=== PATIENT | female | born 1985 | race African-American/Black ===

== ENCOUNTER 2018-08-08 23:49 | Emergency (ER) | payer MEDICAID ==
[~2018-08-08] VITALS: Ht 165.1 cm; Wt 122.5 kg
[2018-08-09] VITALS (8 sets, daily range): BP systolic 126–140; BP diastolic 70–81
--- NOTE | 2018-08-09 00:08 | NUR ---
ED Nurse Note: PT WAS PICKEDUP ON [facility]AH BY ANDREW DUE TO BHAVIORAL COMPLAINT, PT WAS COMBATIVE AT SCENE PT IS IN CUSTODY
[2018-08-09] MEDS ORDERED: Haloperidol 5mg/ml Inj IM ONE (00:30)
[2018-08-09] MEDS ORDERED: DiphenhydrAMINE 50mg/ml Inj IM ONE (00:30)
[2018-08-09] MEDS ORDERED: LORazepam Inj 2mg/ml 1ml IM ONE (00:30)
[2018-08-09 03:53] LABS: EOSINOPHILS % (AUTO) 1.8 % (0.0-3.0); HEMOGLOBIN 12.5 G/DL (12.0-16.0); LYMPHOCYTES % (AUTO) 53.4 % (20.0-45.0); MEAN CORPUSCULAR VOLUME 87 FL (80-99); MONOCYTES % (AUTO) 8.5 % (1.0-10.0); NEUTROPHILS % (AUTO) 34.3 % (45.0-75.0); PLATELET COUNT 177 K/UL (150-450); RED BLOOD COUNT 4.48 M/UL (4.20-5.40); RED CELL DISTRIBUTION WIDTH 13.9 % (11.6-14.8); WHITE BLOOD COUNT 5.4 K/UL (4.8-10.8)
[2018-08-09 04:14] LABS: ANION GAP 6 mmol/L (5-15); BLOOD UREA NITROGEN 15 mg/dL (7-18); CALCIUM 8.6 MG/DL (8.5-10.1); CARBON DIOXIDE 28 MMOL/L (21-32); CHLORIDE 102 MMOL/L (98-107); CREATININE 0.6 MG/DL (0.55-1.30); POTASSIUM 5.7 MMOL/L (3.5-5.1); SODIUM 136 MMOL/L (136-145)
[2018-08-09 04:20] LABS: ALANINE AMINOTRANSFERASE 33 U/L (12-78); ALBUMIN 3.2 G/DL (3.4-5.0); ALBUMIN/GLOBULIN RATIO 0.8 (1.0-2.7); ALKALINE PHOSPHATASE 88 U/L (46-116); ASPARTATE AMINO TRANSFERASE 47 U/L (15-37); BILIRUBIN,TOTAL 0.5 MG/DL (0.2-1.0)
[2018-08-09] MEDS ORDERED: Sodium Polystyrene Sulfonate 15gm Powder ORAL ONE (05:30)
[2018-08-09 05:35] LABS: APPEARANCE,URINE CLEAR; BILIRUBIN, URINE NEGATIVE (NEGATIVE); GLUCOSE, URINE (UA) NEGATIVE (NEGATIVE); KETONES,URINE 2+ (NEGATIVE); LEUKOCYTE ESTERASE ,URINE 1+ (NEGATIVE); NITRITE,URINE NEGATIVE (NEGATIVE); PH,URINE 5 (4.5-8.0); PROTEIN,URINE 1+ (NEGATIVE); UROBILINOGEN,URINE 1 MG/DL (0.0-1.0)
[2018-08-09 05:42] LABS: COLOR,URINE YELLOW
--- NOTE | 2018-08-09 05:43 | NUR ---
ED Nurse Note: xi hicks moved to [facility]
--- NOTE | 2018-08-09 06:47 | Emergency Room Report ---
History of Present Illness General Chief Complaint: Behavioral Complaint Source: Patient, EMS Present Illness HPI Unidentified female presents ED for evaluation. Brought in by EMS and [employer] for behavioral complaint. Found wandering naked. Unable to provide any history at this time. Unclear whether patient has psychiatric history. No reported SI or HI. No hearing voices. Unclear drug use. No other aggravating relieving factors. No other associated symptoms Allergies: Coded Allergies: UNABLE TO ASSESS (Unverified , 08/08/18) Patient History Past Medical History: none Past Surgical History: none Pertinent Family History: none Social History: Reports: drug use; Denies: smoking, alcohol use Last Menstrual Period: UNK Now: No Immunizations: UTD Reviewed Nursing Documentation: PMH: Agreed; PSxH: Agreed Nursing Documentation-PMH Past Medical History: No History, Except For Review of Systems All Other Systems: limited Physical Exam Vital Signs Date Time Temp Pulse Resp B/P (MAP) Pulse Ox O2 Delivery O2 Flow Rate FiO2 08/08/18 23:48 100 24 135/76 100 Room Air 08/09/18 00:04 99 08/09/18 00:04 98.0 Sp02 EP Interpretation: reviewed, normal General Appearance: other - agitated Head: normocephalic Eyes: bilateral eye normal inspection, bilateral eye PERRL ENT: normal ENT inspection Neck: normal inspection Respiratory: chest non-tender, lungs clear, normal breath sounds, speaking full sentences Cardiovascular #1: regular rate, rhythm, no edema Gastrointestinal: normal bowel sounds, non tender, soft, non-distended, no guarding, no rebound Rectal: deferred Genitourinary: no CVA tenderness Musculoskeletal: normal inspection Neurologic: other - agitated/combative Psychiatric: other - agitated/combative Skin: normal inspection Lymphatic: normal inspection Medical Decision Making Restraint Attestation I, Vishnu Sheets MD, have personally evaluated this patient. Laboratory tests have been reviewed and addressed accordingly. The patient is deemed to present a danger to themselves and/or others. This is based on the exam, history (provided by patient, EMS/[employer] and/or family) and observed or reported behavior. Attempts for non-invasive measures have been considered and/or attempted, however, have been futile. It is in the best interest of the nursing staff, the patient, and others involved in this patient's care that behavioral restraints be applied. Patient evaluation reveals the following: Diagnostic Impression: Primary Impression: Substance abuse ER Course Hospital Course 33 yo F presents to ED for behavioral disorder. found wandering naked on street. Differential diagnoses include: Major depressive disorder, unspecified psychosis , EtOH abuse, drug abuse Clinical course Patient placed on stretcher. On one to one observation. After initial history and physical I ordered labs, sedation medications Labs- K 5.7, aspirin/Tylenol levels normal, EtOH level normal, U. tox + amphetamines, +THC Kayexalate given. patient later provided her name as she is now more awake and alert and oriented. Still no history of SI or HI patient is on 5150 hold. Patient is medically cleared and pending psychiatric evaluation. i. I feel this is a highly complex case requiring extensive working including EKG/Rhythm strip, Xray/CT/US, Blood/urine lab work, repeat exams while in ED, and administration of strong opiates/narcotics for pain control, admission to hospital or close patient follow up. Labs Test 08/09/18 03:24 08/09/18 05:12 White Blood Count 5.4 K/UL (4.8-10.8) Red Blood Count 4.48 M/UL (4.20-5.40) Hemoglobin 12.5 G/DL (12.0-16.0) Hematocrit 39.0 % (37.0-47.0) Mean Corpuscular Volume 87 FL (80-99) Mean Corpuscular Hemoglobin 27.8 PG (27.0-31.0) Mean Corpuscular Hemoglobin Concent 31.9 G/DL (32.0-36.0) Red Cell Distribution Width 13.9 % (11.6-14.8) Platelet Count 177 K/UL (150-450) Mean Platelet Volume 8.1 FL (6.5-10.1) Neutrophils (%) (Auto) 34.3 % (45.0-75.0) Lymphocytes (%) (Auto) 53.4 % (20.0-45.0) Monocytes (%) (Auto) 8.5 % (1.0-10.0) Eosinophils (%) (Auto) 1.8 % (0.0-3.0) Basophils (%) (Auto) 2.0 % (0.0-2.0) Sodium Level 136 MMOL/L (136-145) Potassium Level 5.7 MMOL/L (3.5-5.1) Chloride Level 102 MMOL/L (98-107) Carbon Dioxide Level 28 MMOL/L (21-32) Anion Gap 6 mmol/L (5-15) Blood Urea Nitrogen 15 mg/dL (7-18) Creatinine 0.6 MG/DL (0.55-1.30) Estimat Glomerular Filtration Rate > 60 mL/min (>60) Glucose Level 88 MG/DL (74-106) Calcium Level 8.6 MG/DL (8.5-10.1) Total Bilirubin 0.5 MG/DL (0.2-1.0) Aspartate Amino Transf (AST/SGOT) 47 U/L (15-37) Alanine Aminotransferase (ALT/SGPT) 33 U/L (12-78) Alkaline Phosphatase 88 U/L (46-116) Total Protein 7.4 G/DL (6.4-8.2) Albumin 3.2 G/DL (3.4-5.0) Globulin 4.2 g/dL Albumin/Globulin Ratio 0.8 (1.0-2.7) Salicylates Level 1.4 ug/mL (2.8-20) Acetaminophen Level < 2 MCG/ML (10-30) Serum Alcohol < 3 mg/dL Urine Color Yellow Urine Appearance Clear Urine pH 5 (4.5-8.0) Urine Specific [place] 1.025 (1.005-1.035) Urine Protein 1+ (NEGATIVE) Urine Glucose (UA) Negative (NEGATIVE) Urine Ketones 2+ (NEGATIVE) Urine Blood Negative (NEGATIVE) Urine Nitrite Negative (NEGATIVE) Urine Bilirubin Negative (NEGATIVE) Urine Urobilinogen 1 MG/DL (0.0-1.0) Urine Leukocyte Esterase 1+ (NEGATIVE) Urine RBC 0-2 /HPF (0 - 2) Urine WBC 2-4 /HPF (0 - 2) Urine Squamous Epithelial Cells Few /LPF (NONE/OCC) Urine Bacteria Few /HPF (NONE) Urine HCG, Qualitative Negative (NEGATIVE) Urine Opiates Screen Negative (NEGATIVE) Urine Barbiturates Screen Negative (NEGATIVE) Phencyclidine (PCP) Screen Negative (NEGATIVE) Urine Amphetamines Screen Positive (NEGATIVE) Urine Benzodiazepines Screen Negative (NEGATIVE) Urine Cocaine Screen Negative (NEGATIVE) Urine Marijuana (THC) Screen Positive (NEGATIVE) Last Vital Signs Date Time Temp Pulse Resp B/P (MAP) Pulse Ox O2 Delivery O2 Flow Rate FiO2 08/09/18 04:01 98.0 85 18 140/72 100 Room Air 08/09/18 00:04 99 Status: improved Disposition: XFER SHT-TRM HOSP Condition: Serious Referrals: NOT CHOSEN IPA/,REFERRING (PCP) Vishnu Sheets MD Aug 09, 2018 06:47
--- NOTE | 2018-08-09 07:55 | NUR ---
ED Nurse Note: Patient tolerating oral intake without problem and consumed 100% breakfast.
--- NOTE | 2018-08-09 08:37 | NUR ---
ED Nurse Note: Received patient in bed sleeping. awake and respond to commands. pt drank a cup of milk and fell back to sleep. VSS, and no behaviorl complaints noted at this moment.
--- NOTE | 2018-08-09 09:00 | NUR ---
ED Nurse Note: Blood was redrawn for potassium level. Pt yelled at staff and resisted. After nursing staff explained the purpose of blood drawn to patient, she agreed with it and calmed down.
--- NOTE | 2018-08-09 10:49 | NUR ---
ED Nurse Note: Dr. Beauchamp assessed pt and pt started yelling at doctor as stating "Why are you being so nosy?! I am safe and I have a house!." Pt wanted to go to bathroom and nurse offered bedside commode and pt started yelling again stating "I am not a fucking disable!" MD gave verbal order that pt is ok to walk to the bathroom.
--- NOTE | 2018-08-09 11:00 | NUR ---
dr collier from psych is here to evaluate the patient
--- NOTE | 2018-08-09 11:20 | NUR ---
ED Nurse Note: pt aao x4 with mini cog test but refused to draw clock as stating "I've told you that I am not crazy!" pt was provided extra clothing since her original clothing was not warm enough. pt fit in the clothing that was provided. pt refused to state where she goes. pt was provided information of snf, free clinic, rehab for substance abuse. pt took all the paper but stated "I am in program. I won't need any of these but I will take these just in case." pt VSS and ambulating steadly and food and drink were provided and she finished eating all the food provided. id band removed and received discharge instruction and verbalized understanding and demonstrated appreciation. pt stabley ambulated to be discharged.
--- NOTE | 2018-08-09 12:03 | Consultation ---
History of Present Illness General Chief Complaint: Behavioral Complaint Present Illness HPI 33 yo female presents ED for evaluation brought in by EMS and [employer] for behavioral complaint. The pt was admitted after she was found wandering around naked and disorganized. the pt was evaluated with her nurse present. the pt is denying any si/hi. she was yelling at her nurse after she asked the rn to go to the bathroom and her nurse stated she will bring the commode to her room instead. the pt is not endorsing any psychotic sxs, she denied drug use. Allergies: Coded Allergies: No Known Allergies (Unverified , 08/09/18) Patient History History Provided By: Patient, Medical Record, PMD Healthcare decision maker Resuscitation status Advanced Directive on File Review of Systems Psychiatric: Reports: anxiety - anger issues, depressed feelings Physical Exam General Appearance: no apparent distress, alert, morbidly obese Neurologic: oriented x 3, responsive, normal mood/affect Last 24 Hour Vital Signs Date Time Temp Pulse Resp B/P (MAP) Pulse Ox O2 Delivery O2 Flow Rate FiO2 08/09/18 11:20 97.7 83 16 126/70 100 Room Air 100 08/09/18 11:20 98.1 72 17 123/71 96 Room Air 08/09/18 10:07 97.7 83 16 126/70 100 Room Air 08/09/18 08:32 61 22 Room Air 100 08/09/18 08:32 98.0 61 22 126/81 100 Room Air 100 08/09/18 06:58 98.0 83 18 136/74 99 Room Air 08/09/18 06:00 98.0 81 17 138/71 98 Room Air 08/09/18 04:01 98.0 85 18 140/72 100 Room Air 08/09/18 02:00 98.0 90 19 133/73 100 Room Air 08/09/18 00:04 98.0 90 24 135/76 100 Room Air 08/09/18 00:04 100 24 Room Air 99 08/08/18 23:48 100 24 135/76 100 Room Air Laboratory Tests Test 08/09/18 03:24 08/09/18 05:12 08/09/18 09:20 White Blood Count 5.4 K/UL (4.8-10.8) Red Blood Count 4.48 M/UL (4.20-5.40) Hemoglobin 12.5 G/DL (12.0-16.0) Hematocrit 39.0 % (37.0-47.0) Mean Corpuscular Volume 87 FL (80-99) Mean Corpuscular Hemoglobin 27.8 PG (27.0-31.0) Mean Corpuscular Hemoglobin Concent 31.9 G/DL (32.0-36.0) L Red Cell Distribution Width 13.9 % (11.6-14.8) Platelet Count 177 K/UL (150-450) Mean Platelet Volume 8.1 FL (6.5-10.1) Neutrophils (%) (Auto) 34.3 % (45.0-75.0) L Lymphocytes (%) (Auto) 53.4 % (20.0-45.0) H Monocytes (%) (Auto) 8.5 % (1.0-10.0) Eosinophils (%) (Auto) 1.8 % (0.0-3.0) Basophils (%) (Auto) 2.0 % (0.0-2.0) Sodium Level 136 MMOL/L (136-145) Potassium Level 5.7 MMOL/L (3.5-5.1) H 3.9 MMOL/L (3.5-5.1) Chloride Level 102 MMOL/L (98-107) Carbon Dioxide Level 28 MMOL/L (21-32) Anion Gap 6 mmol/L (5-15) Blood Urea Nitrogen 15 mg/dL (7-18) Creatinine 0.6 MG/DL (0.55-1.30) Estimat Glomerular Filtration Rate > 60 mL/min (>60) Glucose Level 88 MG/DL (74-106) Calcium Level 8.6 MG/DL (8.5-10.1) Total Bilirubin 0.5 MG/DL (0.2-1.0) Aspartate Amino Transf (AST/SGOT) 47 U/L (15-37) H Alanine Aminotransferase (ALT/SGPT) 33 U/L (12-78) Alkaline Phosphatase 88 U/L (46-116) Total Protein 7.4 G/DL (6.4-8.2) Albumin 3.2 G/DL (3.4-5.0) L Globulin 4.2 g/dL Albumin/Globulin Ratio 0.8 (1.0-2.7) L Salicylates Level 1.4 ug/mL (2.8-20) L Acetaminophen Level < 2 MCG/ML (10-30) L Serum Alcohol < 3 mg/dL Urine Color Yellow Urine Appearance Clear Urine pH 5 (4.5-8.0) Urine Specific [place] 1.025 (1.005-1.035) Urine Protein 1+ (NEGATIVE) H Urine Glucose (UA) Negative (NEGATIVE) Urine Ketones 2+ (NEGATIVE) H Urine Blood Negative (NEGATIVE) Urine Nitrite Negative (NEGATIVE) Urine Bilirubin Negative (NEGATIVE) Urine Urobilinogen 1 MG/DL (0.0-1.0) H Urine Leukocyte Esterase 1+ (NEGATIVE) H Urine RBC 0-2 /HPF (0 - 2) Urine WBC 2-4 /HPF (0 - 2) Urine Squamous Epithelial Cells Few /LPF (NONE/OCC) Urine Bacteria Few /HPF (NONE) Urine HCG, Qualitative Negative (NEGATIVE) Urine Opiates Screen Negative (NEGATIVE) Urine Barbiturates Screen Negative (NEGATIVE) Phencyclidine (PCP) Screen Negative (NEGATIVE) Urine Amphetamines Screen Positive (NEGATIVE) H Urine Benzodiazepines Screen Negative (NEGATIVE) Urine Cocaine Screen Negative (NEGATIVE) Urine Marijuana (THC) Screen Positive (NEGATIVE) H Height (Feet): 5 Height (Inches): 5.00 Weight (Pounds): 270 Assessment/Plan Problem List: (1) Methamphetamine abuse ICD Codes: F15.10 - Other stimulant abuse, uncomplicated SNOMED: 844565849 (2) Cannabis abuse ICD Codes: F12.10 - Cannabis abuse, uncomplicated SNOMED: 73570878 Status: stable, progressing Assessment/Plan the pt is not at imminent dts dto de home the pt will get referrals to substance use Roslyn Collier MD Aug 09, 2018 12:03
== END 2018-08-09 11:20 | disposition home or self-care (01) ==
LOC: EDBD 23:49 → EMR 08-09 00:28 → EDBD 08-09 00:28 → EMR 08-09 11:20
DX: F19.10 Other psychoactive substance abuse, uncomplicated (principal)
CPT/HCPCS: 36415; 80053; 80307; 80329; 81003; 81025; 84132; 85025; 96372; 99285; J1200; J1630